=== PATIENT | female | born 1955 | race African-American/Black ===

== ENCOUNTER 2020-10-27 10:38 | Outpatient (CLI) | payer OTHER, SELFPAY ==
--- NOTE | ~2020-10-27 | MM_ITS ---
EXAMINATION: MM screening [facility] w [facility] HISTORY: Screening TECHNIQUE: Craniocaudal and mediolateral oblique 3-D tomosynthesis images were obtained and synthetic 2-D images were generated. CAD analysis was submitted and interpreted. COMPARISON: 01/31/2015 BREAST PARENCHYMAL COMPOSITION: There are scattered areas of fibroglandular density. FINDINGS: There is no evidence of suspicious mass, calcification, or architectural distortion to sugg est malignancy in either breast. There has been no suspicious interval change. IMPRESSION: 1. No mammographic evidence of malignancy. 2. Recommend routine screening mammography in one year. BI-RADS Category 1: Negative Reviewed, dictated and finalized at location A.
--- NOTE | ~2020-10-27 | DEXA_ITS ---
Bone Density Report Name: Loraine Bishop Age: 65 Sex: Female Ethnicity: White Date of : 1955 Indication: osteopenia; height loss; prior fracture; asthma or emphysema; hysterectomy; Referring Provider: IVA MILLS Study: Bone densitometry was performed. Exam Date: October 27, 2020 Accession number: [id number] Bone Density: Region BMD T-score Z-score Classification AP Spine (L1, L2, L3) 0.823 -1.8 -0.2 Osteopenia Femoral Neck (Left) 0.672 -1.6 -0.2 Osteopenia Total Hip (Left) 0.706 -1.9 -0.8 Osteopenia Total Hip Bilateral Avg 0.708 -1.9 -0.8 Osteopenia Femoral Neck (Right) 0.618 -2.1 -0.7 Osteopenia Total Hip (Right) 0.709 -1.9 -0.8 Osteopenia World Health Organization criteria for BMD impression classify patients as: Normal (T-score at or above -1.0), Osteopenia (T-score between -1.0 and -2.5), or Osteoporosis (T-score at or below -2.5). 10-year Fracture Risk(1): Major Osteoporotic Fracture 6.9% Hip Fracture 0.9% Reported Risk Factors: [place] (Black), Neck BMD=0.618, BMI=41.0, previous fracture (1) FRAX(R) Version 3.08. Fracture probability calculated for an untreated patient. Fracture probability may be lower if the patient has received treatment. Previous Exams: Region Exam Age BMD T-score BMD Change BMD Change Date g/cm2 vs Baseline vs Previous AP Spine(L1, L2, L3) 10/27/2020 65 0.823 -1.8 -0.078(-8.7%)* -0.078(-8.7%)* 01/31/2015 59 0.901 -1.1 Total Hip(Left) 10/27/2020 65 0.706 -1.9 -0.025(-3.4%) -0.025(-3.4%) 01/31/2015 59 0.731 -1.7 Total Hip(Right) 10/27/2020 65 0.709 -1.9 -0.065(-8.4%)* -0.065(-8.4%)* 01/31/2015 59 0.774 -1.4 *Denotes significance at 95% confidence level, LSC for AP Spine = 0.022 g/cm2, LSC for Total Hip = 0.027 g/cm2 Clinical Information Provided by Patient: Has had a low trauma fracture Has used the following medications: Vitamin D Has the following medical conditions: Asthma or Emphysema, Hysterectomy Patient maximum height was 68.5 Menopause Age: 52 Drinks caffeinated beverages Onset of menses at age 14 Number of children 0 Impression: The patient has low bone mass, based on the Right Femoral Neck T-score. The patient has an estimated ten-year risk of hip fracture of 0.9% and an estimated ten-year risk of major fracture of 6.9%, based on the WHO FRAX algorithm. The patient has risk factors, including: previous fracture. The BMD for the AP Spine(L1, L2, L3) decreased, changing
== END 2020-10-27 10:39 | disposition home or self-care (01) ==
LOC: ANHIMG 10:40
PROVIDERS: PCP Family Medicine; Visit Provider Obstetrics & Gynecology
DX: Z12.31 Encounter for screening mammogram for malignant neoplasm of breast (principal); Z13.820 Encounter for screening for osteoporosis; M85.88 Other specified disorders of bone density and structure, other site; M85.852 Other specified disorders of bone density and structure, left thigh; M85.851 Other specified disorders of bone density and structure, right thigh
CPT/HCPCS: 77063; 77067; 77080

== ENCOUNTER 2021-11-23 09:32 | Outpatient (CLI) | payer OTHER, SELFPAY ==
--- NOTE | ~2021-11-23 | MM_ITS ---
EXAMINATION: MM screening [facility] w [facility] HISTORY: Screening TECHNIQUE: Craniocaudal and mediolateral oblique 3-D tomosynthesis images were obtained and synthetic 2-D images were generated. CAD analysis was submitted and interpreted. COMPARISON: Comparison to multiple prior studies sequentially, with oldest reviewed study dated 10/2014. BREAST PARENCHYMAL COMPOSITION: Breast composed of scattered areas of fibroglandular density FINDINGS: There is no evidence of suspicious mass, calcification, or architectural distortion to sugg est malignancy in either breast. There has been no suspicious interval change. IMPRESSION: 1. No mammographic evidence of malignancy. 2. Recommend routine screening mammography in one year. BI-RADS Category 1: Negative Reviewed, dictated and finalized at location A.
== END 2021-11-23 09:33 | disposition home or self-care (01) ==
LOC: ANHIMG 09:35
PROVIDERS: PCP Family Medicine; Visit Provider Obstetrics & Gynecology
DX: Z12.31 Encounter for screening mammogram for malignant neoplasm of breast (principal)
CPT/HCPCS: 77063; 77067

== ENCOUNTER 2023-08-14 13:11 | Outpatient (CLI) | payer OTHER, SELFPAY ==
--- NOTE | ~2023-08-14 | MM_ITS ---
EXAMINATION: MM screening [facility] BI w t[place] HISTORY: Screening mammogram TECHNIQUE: Craniocaudal and mediolateral oblique 3-D tomosynthesis images were obtained and synthetic 2-D images were generated. CAD analysis was submitted and interpreted. COMPARISON: 11/15/2021, 10/27/2020, 01/31/2015 BREAST PARENCHYMAL COMPOSITION: There are scattered areas of fibroglandular density. FINDINGS: No suspicious mass, calcification, or architectural distortion are identified in either hollie ast to suggest malignancy. There has been no suspicious interval change. IMPRESSION: 1. No mammographic evidence of malignancy. 2. Recommend routine screening mammography in one year. BI-RADS Category 1: Negative Reviewed, dictated and finalized at location A. 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
--- NOTE | ~2023-08-14 | DEXA_ITS ---
Bone Density Report Name: BRE EPPS Age: 67 Sex: Female Ethnicity: White Date of : 1955 Indication: postmenopausal; screening for osteoporosis; height loss; asthma or emphysema; hysterectomy; Referring Provider: IVA MILLS Study: Bone densitometry was performed. Exam Date: August 14, 2023 Accession number: [id number] Bone Density: Region BMD T-score Z-score Classification AP Spine(L1, L2, L3) 0.823 -1.8 0.0 Osteopenia Femoral Neck (Left) 0.642 -1.9 -0.3 Osteopenia Total Hip (Left) 0.686 -2.1 -0.8 Osteopenia Femoral Neck (Right) 0.630 -2.0 -0.4 Osteopenia Total Hip (Right) 0.678 -2.2 -0.9 Osteopenia Total Hip Mean 0.682 -2.2 -0.9 Osteopenia World Health Organization criteria for BMD impression classify patients as: Normal (T-score at or above -1.0), Osteopenia (T-score between -1.0 and -2.5), or Osteoporosis (T-score at or below -2.5). 10-year Fracture Risk(1): Major Osteoporotic Fracture 9.3% Hip Fracture 1.3% Reported Risk Factors: [place] (), Neck BMD=0.630, BMI=40.8 (1) FRAX(R) Version 3.08. Fracture probability calculated for an untreated patient. Fracture probability may be lower if the patient has received treatment. Clinical Information Provided by Patient: Has the following medical conditions: Asthma or Emphysema, Hysterectomy Patient maximum height was 68.0 Menopause Age: 52 No regular weight bearing exercise Drinks caffeinated beverages Onset of menses at age 14 Number of children 0 Impression: The patient has low bone mass, based on the Right Total Hip T-score. The patient has an estimated ten-year risk of hip fracture of 1.3% and an estimated ten-year risk of major fracture of 9.3%, based on the WHO FRAX algorithm. Discussion: BONE DENSITY IS LOW AT ONE OR MORE SKELETAL SITES. This patient's lowest T-score is low at one or more skeletal sites. It meets the World Health Organization's (WHO) criteria for ?low bone mass? (T-score between -1.0 and -2.5). The patient's 10-year risk of fracture as calculated by FRAX is less than the threshold where pharmacological therapy is recommended by the National Osteoporosis Foundation (NOF). However, all treatment decisions require clinical judgment and consideration of individual patient factors, including patient preferences, comorbidities, previous drug use, risk factors not captured in the FRAX model (e.g., frailty, falls, vitamin D deficiency, increased bone turnover, interval significant decline in bone density) and possible under or overestimation of fracture risk by FRAX. The patient should follow a healthful lifestyle (good nutrition with adequate calcium and vitamin D, and appropriate weight-bearing exercise). Follow-Up: Consider repeating this study in 2 to 3 years to reassess this patient's s
== END 2023-08-14 13:12 | disposition home or self-care (01) ==
LOC: ANHIMG 13:14
PROVIDERS: PCP Family Medicine; Visit Provider Obstetrics & Gynecology
DX: Z12.31 Encounter for screening mammogram for malignant neoplasm of breast (principal); Z78.0 Asymptomatic menopausal state; M85.88 Other specified disorders of bone density and structure, other site; M85.852 Other specified disorders of bone density and structure, left thigh; M85.851 Other specified disorders of bone density and structure, right thigh
CPT/HCPCS: 77063; 77067; 77080

== ENCOUNTER 2024-12-15 10:06 | Outpatient (CLI) | payer OTHER, SELFPAY ==
--- NOTE | ~2024-12-15 | MM_ITS ---
EXAMINATION: MM screening haroon BI w troy HISTORY: Screening TECHNIQUE: Craniocaudal and mediolateral oblique 3-D tomosynthesis images were obtained and synthetic 2-D images were generated. CAD analysis was submitted and interpreted. COMPARISON: Comparison to multiple prior studies sequentially, with oldest reviewed study dated 10/2014. BREAST PARENCHYMAL COMPOSITION: Not dense: There are scattered areas of fibroglandular density. FINDINGS: There is no evidence of suspicious mass, calcification, or architectural distortion to sugg est malignancy in either breast. There has been no suspicious interval change. IMPRESSION: 1. No mammographic evidence of malignancy. 2. Recommend routine screening mammography in one year. BI-RADS Category 1: Negative Reviewed, dictated and finalized at location A.
--- OUTSIDE RECORDS SUMMARY | 2024-12-15 10:51 | XMS_ITS | Patient Health Record ---
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 Role Phone ALISA BENJAMIN Unavailable [phone] Liban Sheets Unavailable Unavailable Allergies Allergen (clinical drug ingredient) Drug/Non Drug Allergy documented on EMR Reaction Allergy Type Onset Date Status nebivolol Bystolic Unknown Drug Allergy 04/27/2020 active Reason For Referral No Information Medications Medication SIG (Take, Route, Frequency, Duration) Notes Start Date End Date Status Losartan Potassium 25 MG Oral Tablet losartan potassium 25 MG Ora l TabletOriginal Medicationlosartan potassium 25 MG Oral Tablet *Reorder from [employer] for eRx and Interaction Alerts* 021 2044 Active insulin degludec 100 UNT/ML Injectable Solution [Tresiba] insulin degludec 100 UNT/ML Injectable Solution [Tresiba]Original Medicationinsulin degludec 100 UNT/ML Injectable Solution [Tresiba] *Reorder from [employer] for eRx and Interaction Alerts* Active metformin hydrochloride 500 MG Oral Tablet ORAL metformin hydrochloride 500 MG Oral TabletOriginal Medicationmetformin hydrochloride 500 MG Oral Tablet *Reorder from [employer] for eRx and Interaction Alerts* Active hydroCHLOROthiazide 12.5 MG Oral Tablet ORAL hydrochlorothiazide 12.5 MG Oral TabletOriginal Medicationhydrochlorothiazide 12.5 MG Oral Tablet *Reorder from [employer] for eRx and Interaction Alerts* Active insulin aspart protamine, human 70 UNT/ML / insulin aspart, human 30 UNT/ML Injectable Suspension [NovoLog Mix] insulin aspart protamine, hu man 70 UNT/ML / insulin aspart, human 30 UNT/ML Injectable Suspension [NovoLog Mix]Original Medicationinsulin aspart protamine, human 70 UNT/ML / insulin aspart, human 30 UNT/ML Inje Active Carvedilol 12.5 MG Oral Tablet ORAL carvedilol 12.5 MG Oral TabletOriginal Medicationcarvedilol 12.5 MG Oral Tablet *Reorder from [employer] for eRx and Interaction Alerts* Active Losartan Potassium 100 MG Oral Tablet ORAL losartan potassium 100 MG Or al TabletOriginal Medicationlosartan potassium 100 MG Oral Tablet *Reorder from [employer] for eRx and Interaction Alerts* Active Plan Of Treatment No Information Insurance Providers Payer Name Payer Address Payer Phone Subscriber Number Group Number Insured Name Patient Relationship to Insured Coverage Start Date Coverage End Date [employer] PPO [address] [place], [place] [id number] BRE SMITH Self - patient is the insured
--- OUTSIDE RECORDS SUMMARY | 2024-12-15 10:51 | XMS_ITS | Data Portability ---
Author Organization [facility] [place] Boyd Address [address] [facility] [place] [address] Care Team Providers Care Hydraulics Engineer Name Role Phone LIBAN SHEETS Primary Care Provider [phone] Assessment No assessment recorded. Plan of Treatment Reminders Order Date Submit Date Provider Last Modified By Organization Details Last Modified Time Details Appointments ANY 15 2024 03:15P Sandi Sheets MD Not available Not available Not available Lab glucose, fingerst ick, blood 2024 025 In-Office Order, Internal Use Only DO Not Attach Compendium DO Not Attach Compendium, Do Not Delete/merge, [id number] 12/07/2024 17:15:11 HbA1c (hemoglo bin A1c), blood 2024 025 In-Office Order, Internal Use Only DO Not Attach Compendium DO Not Attach Compendium, Do Not Delete/merge, [id number] 12/07/2024 17:15:11 glucose, fingerst ick, blood 2024 025 In-Office Order, Internal Use Only DO Not Attach Compendium DO Not Attach Compendium, Do Not Delete/merge, [id number] 09/06/2024 17:15:51 HbA1c (hemoglo bin A1c), blood 2024 025 In-Office Order, Internal Use Only DO Not Attach Compendium DO Not Attach Compendium, Do Not Delete/merge, [id number] 09/06/2024 17:15:51 urinalys is, dipstick , reflex micro 2024 025 [facility] (Lab), [address], [place], [address], 10/25/2024 12:44:04 BMP, serum or plasma 2024 025 [facility] (Lab), [address], [place], [address], 10/25/2024 12:44:12 microalb umin/cre atinine, mass ratio, urine 2024 025 [facility] (Lab), [address], [place], [address], 10/25/2024 12:44:18 immunoel ectropho resis, serum 2024 025 [facility] (Lab), [address], [place], [address], 10/25/2024 12:44:24 ALEXX (antinuc lear antibodi es) screen, ifa, serum 2024 025 [facility] [employer], [address], [address], [place], [address], 10/25/2024 12:44:30 C3 + C4 (complem ent), serum 2024 025 [facility] [employer] [facility], [address], [address], [place], [address], 10/25/2024 12:44:36 glucose, fingerst ick, blood 2023 024 In-Office Order, Internal Use Only DO Not Attach Compendium DO Not Attach Compendium, Do Not Delete/merge, [id number] 05/09/2024 13:24:19 HbA1c (hemoglo bin A1c), blood 2023 024 In-Office Order, Internal Use Only DO Not Attach Compendium DO Not Attach Compendium, Do Not Delete/merge, [id number] 05/09/2024 13:24:19 glucose, fingerst ick, blood 2023 024 In-Office Order, Internal Use Only DO Not Attach Compendium DO Not Attach Compendium, Do Not Delete/merge, [id number] 02/09/2024 17:00:41 Referral pulmonol ogist referral 2024 025 [facility]MANINDER [facility], [address] [facility], [address], [place], [address], 12/07/2024 17:28:[address] referral 2024 025 CHOLO Ibrahim MD, [address], [address], [place], [address], 09/19/2024 09:33:26 Procedures None recorded . Surgeries None recorded . Imaging XR, chest, 2 view 2024 025 [facility] [address], [place], [address], 12/09/2024 14:52:19 XR, knee, 3 view 2023 024 [facility] (Rad), [address], [place], [address], 02/17/2024 02:18:57 XR, ankle, 3 or more view 2023 024 [facility] (Rad), [address], [place], [address], 02/17/2024 09:30:27 unlisted imaging order - xr hip lt 2-3 views w/wo pel 2023 024 [email or web address] [address], [place], [address], 03/09/2024 16:03:54 Medication Orders predniso ne 20 mg tablet [address], [address] [place] [address], [address], 12/07/2024 17:15:10 Zithroma x Z-Nilay 250 mg tablet [address], [address] [place] [address], [address], 12/07/2024 17:15:10 Symbicor t 160 mcg-4.5 mcg/actu ation HFA aerosol inhaler [address], [address] [place] [address], [address], 12/07/2024 17:15:10 ferrous sulfate 325 mg (65 mg iron) tablet 2024 025 [facility] [address], [address] [place] [address], [address], 09/06/2024 17:15:57 amlodipi ne 5 mg tablet 2024 025 [facility] [address], [address] [place] [address], [address], 08/23/2024 14:57:20 carvedil ol 6.25 mg tablet 2024 025 [facility] [address], [address] [place] [address], [address], 08/23/2024 14:59:23 Vitamin D2 1,250 mcg (50,000 unit) capsule 2023 024 [facility] [address], [address] [place] [address], [address], 05/09/2024 13:24:27 hydralaz ine 50 mg tablet 2023 025 [facility] [address], [address] [place], [address], 08/23/2024 15:05:59 ferrous sulfate 325 mg (65 mg iron) tablet 2023 024 [facility] [address], [address] [place], [address], 05/09/2024 13:24:28 atorvast atin 20 mg tablet 2023 025 [facility] [address], [address] [place], [address], 08/23/2024 14:51:26 Vitamin D2 1,250 mcg (50,000 unit) capsule 2023 024 [facility] [address], [address] [place], [address], 02/09/2024 17:00:46 Patient TargetsNo targets recorded. Patient Instructions Encounter Date Encounter Id Patient Instructions Last Modified By Organization Details Last Modified Time 02/09/2024 [id number] A healthy lifestyle: care instructions Not available 02/09/2024 17:00:38 high cholesterol : care instructions Not available 02/09/2024 17:00:38 learning about high blood pressure Not available 02/09/2024 17:00:39 05/09/2024 [id number] learning about high blood pressure Not available 05/09/2024 13:24:19 A healthy lifestyle: care instructions Not available 05/09/2024 13:24:19 anemia: care instructions Not available 05/09/2024 13:24:19 09/06/2024 [id number] A healthy lifestyle: care instructions Not available 09/06/2024 17:15:51 advance care planning: care instructions Not available 09/06/2024 17:15:51 preventing falls : care instructions Not available 09/06/2024 17:15:51 Quitting Tobacco : Care Instructions Not available 09/06/2024 17:15:51 Medicare Well[facility] Preventive Checklist Not available 09/06/2024 17:15:51 eating healthy foods: care instructions Not available 09/06/2024 17:15:51 AD8 Dementia Screening Interview Not available 09/06/2024 17:15:51 anemia: care instructions Not available 09/06/2024 17:15:51 learning about high blood pressure Not available 09/06/2024 17:15:51 12/07/2024 [id number] A healthy lifestyle: care instructions Not available 12/07/2024 17:15:10 Reason for Referral Director Script Referral for Screening for malignant neoplasm of colon Referring Physician: Liban Sheets [employer] [facility], Encounter Date: 09/06/2024 Packing Machine Inspector Referral for E xacerbation of moderate persistent asthma Referring Physician: Liban Sheets [facility], Encounter Date: 12/07/2024 Results Created Date Observation Date Name Description Value Unit Range Abnormal Flag Note LastModifiedBy Organization Detail LastModifiedTime 02/09/20 24 02/09/2024 gluco seashu rstic k, blood Blood Glucose: mg/dl 91 Not Available In-Off ice Order Internal Use Only DO Not Attach Compendium DO Not Attach Compendium, Do Not Delete/merge, [id number] 02/09/2024 16:36:26 05/09/20 24 05/09/2024 gluco fannie nathane rstic k, blood Blood Glucose: mg/dl 145 Not Available In-Off ice Order Internal Use Only DO Not Attach Compendium DO Not Attach Compendium, Do Not Delete/merge, [id number] 05/09/2024 12:46:15 05/09/20 24 05/09/2024 HbA1c (hemo globi n A1c), blood HbA1c 8.6 Not Available In-Office Order Internal Use Only DO Not Attach Compendium DO Not Attach Compendium, Do Not Delete/merge, [id number] 05/09/2024 12:46:15 09/07/19 25 09/06/2024 HbA1c (hemo globi n A1c), blood HbA1c 7.9 Not Available In-Office Order Internal Use Only DO Not Attach Compendium DO Not Attach Compendium, Do Not Delete/merge, [id number] 09/06/2024 16:18:59 09/07/1909/06/2024 gluco se, ashu ramey k, blood Blood Glucose: mg/dl 133 Not Available In-Off ice Order Internal Use Only DO Not Attach Compendium DO Not Attach Compendium, Do Not Delete/merge, [id number] 09/06/2024 16:18:58 09/24/19 25 09/23/2024 POC GLUCO SE POC glucose 50 mg/dL 70-99 low Not Available [facility] [place] ([place] [place], [address], 09/23/2024 15:11:28 09/24/19 25 09/23/2024 POC GLUCO SE POC glucose 110 mg/dL 70-99 high Not Available [facility] (Lab) [address] [facility], [place], [address], 09/23/2024 16:09:45 09/24/19 25 09/23/2024 Gluco se [Mass /volu me] in Blood by Autom ated test strip glucose [mass/volume ] in blood by automated test strip 110 mg/dL low: 70mg/d Lhigh: 99mg/d L high GLUCO SE POC 110 (H) 70 - 99 mg/dL 09/23 3:09 PM CDT [facility] Not Available Not Available 09/23/2024 16:29:20 09/24/19 25 09/23/2024 Gluco se [Mass /volu me] in Blood by Autom ated test strip interpretati on and review of laboratory results Abnorm al Not Available Not Available 16:29:20 09/24/19 25 09/23/2024 Gluco se [Mass /volu me] in Blood by Autom ated test strip glucose [mass/volume ] in blood by automated test strip 50 mg/dL low: 70mg/d Lhigh: 99mg/d L low GLUCO SE POC 50 (L) 70 - 99 mg/dL 09/23 2:10 PM CDT [facility] Not Available Not Available 09/23/2024 16:29:20 09/24/19 25 09/23/2024 Gluco se [Mass /volu me] in Blood by Autom ated test strip interpretati on and review of laboratory results Abnorm al Not Available Not Available 16:29:20 12/08/19 25 12/07/2024 HbA1c (hemo globi n A1c), blood HbA1C 7.9 % Not Available In-Office Order Internal Use Only DO Not Attach Compendium DO Not Attach Compendium, Do Not Delete/merge, [id number] 12/07/2024 16:38:18 12/08/19 25 12/07/2024 gluco se, finge rstic k, blood Blood Glucose: mg/dl 118 Not Available In-Off ice Order Internal Use Only DO Not Attach Compendium DO Not Attach Compendium, Do Not Delete/merge, [id number] 12/07/2024 16:38:17 02/17/20 24 02/16/2024 XR, knee, 3 view No observ ation record ed. [address] [place], [address], 05/09/2024 13:11:41 02/17/20 24 02/16/2024 XR, hip, unila teral , 2 or 3 view No observ ation record ed. [address] [place], [address], 05/09/2024 13:11:41 02/17/20 24 02/16/2024 XR, ankle , 3 or more view No observ ation record ed. [address] [place], [address], 05/09/2024 13:11:41 06/06/20 24 06/06/2024 US, renal No observ ation record ed. [facility] [address] [facility], [place], [address], 09/06/2024 17:04:49 09/24/19 25 xr chest Pa+la t [facility] [address] [facility] [place] [address] [facility] [address] [facility] [place] [address] Examin ation: Chest x-ray 2 view Access ion: [id number] Exam date/t daryl: 2:41 PM Reason For Exam: cough, wheezi ng, sob Compar elfego: Chest radiog raph 2018. Techni que: PA and latera l views of the chest were obtain ed. Findin gs: The cardia c silhou ette, medias tinal contou rs, and pulmon warren vessel s appear normal . The lungs are clear. No pneumo thorax . No consol idatio ns or effusi ons are seen. =====I MPRESS ION:== === No acute cardio pulmon warren findin gs. ====== ====== ====== === Ordere d By: ASHA VALLE [facility] Signed By: Alen Dennis MD on 2:59 PM Interp reted By: Alen Dennis MD, 2:58 PM [facility] [address] [facility], [place], [address], 09/26/2024 00:50:10 12/10/19 25 12/07/2024 XR, chest , 2 view No observ ation record ed. [facility]uling [address] [facility], [place], [address], 12/09/2024 22:18:50 Result Notes None recorded. Problems Name Problem SNOMED Code Status Onset Date Resolution Date Notes Provider Name and Address Organization Details Recorded Time Acute sinusitis 67491887 Active 2018 Austin Feldman PA-C Attn: Accounting, [address] [facility], [place], [address], [place] [facility] 9 19:25:26 Obese 547344394 Active 2018 Austin Feldman PA-C Attn: Accounting, [address] [facility], [place], [address], [place] [facility] 9 19:27:21 Serous otitis media 28945011 Active 2018 Austin Feldman PA-C Attn: Accounting, [address] [facility], [place], [address], [place] [facility] 9 19:44:23 Eustachian tube disorder 55278035 Active 2018 Austin Feldman PA-C Attn: Accounting, [address] [facility], [place], [address], [place] [facility] 9 19:44:45 Essential hypertension 79472687 Active 2021 Hyun Escamilla MA null, [place] [facility] 2 14:45:34 Hypertensive disorder 63490933 Active Liban Sheets MD Attn: Accounting, [address] [place], [address], [place] [facility] 6 17:17:00 Asthma 916547142 Active Jodi Oh [place] null, [place] [facility] 6 16:39:47 Diabetes mellitus 69252527 Active Liban Sheets MD Attn: Accounting, [address] [facility], [place], [address], [place] [facility] 6 17:17:00 Upper respiratory infection 39232379 Active Jodi Oh [place] null, [place] [facility] 6 16:39:47 Abnormal renal function 26480880 Active 2024 Leoncio Hernandez MD Attn: Accounting, [address] [facility], [place], [address], [place] [facility] 5 14:46:59 Retinopathy due to diabetes mellitus 0193984 Active 2024 Leoncio Hernandez MD Attn: Casey, [address] [facility], [place], [address], [place] [facility] 5 14:46:59 Conjunctivit is 7799811 Active Jodi Oh [place], [place] [facility] 6 16:39:47 Obesity 503703620 Active Jodi Oh [place], [place] [facility] 6 16:39:47 Otitis media 64015944 Active Jodi Oh [place] [facility] 6 16:39:47 Increased blood pressure 21902590 Active Jodi Oh [place] [facility] 6 16:39:47 Problem Notes None recorded. Procedures Surgical History Date Name Laterality Status Provider Name and Address Organization Details Recorded Time 0 Routine Foot Care completed Alex Negro DPM [address], [place], [address], [place] [facility] 09/08/2019 10:55:04 9 Routine Foot Care completed Alex Negro DPM [address], [place], [address], [place] [facility] 01/27/2019 16:28:37 9 Routine Foot Care completed Alex Negro DPM [address] [place], [address], [place] [facility] 10/12/2018 16:07:09 Imaging Results None recorded. Procedure Notes None recorded. Medical Equipment None Reported. Allergies Allergen ID Allergen Name Allergen Category Reaction Reaction Severity Criticality Documentation Date Start Date Code Code System Note Provider Name and Address Organization Details Recorded Time 727141 amlodipin e medicatio n edema Not available Not available 11/07/20222022 71656 RxNorm Liban Sheets MD Attn: Mat butler,[address] [facility], [place], [address], [place] [facility] 3 16:27:39 293880 Imdur medicatio n headache Not available Not available 05/09/20242023 89160 2 RxNorm Liban Sheets MD Attn: Mat butler,[address] [facility], [place], [address], [facility] 4 13:17:20 442294 nebivolol medicatio n swelling Not available [facility] 09/06/20242019 17407 RxNorm Hudson Sage MA null, [place] - [place] 5 16:34:59 549781 hydralazi ne medicatio n headache mild Not available 09/06/2024 5470 RxNorm Liban Sheets MD Attn: Mat butler,[address] [facility], [place], [address], [facility] 5 17:10:59 Medications Name Sig Start Date Stop Date Status Note LastModified by Organization Details LastModified Time cyclobenzap rine 10 mg tablet active Not Available Not Available Not Available amoxicillin 500 mg capsule 10/12 completed Not Available Not Available Not Available furosemide 40 mg tablet TAKE 1 TABLET BY MOUTH ONCE DAILY FOR 30 DAYS active Not Available Not Available No t Available carvedilol 25 mg tablet TAKE 1 TABLET BY MOUTH TWICE DAILY WITH MEALS 08/23 completed Not Available Not Available Not Available potassium chloride ER 10 mEq capsule,ext ended release Take 1 capsule every day by oral route for 90 days. 2016 active Not Available Not Available Not Avai lable clonidine HCl 0.1 mg tablet Take 1 tablet every day by oral route as directed for 1 day. 08/23 completed Not Available Not Available Not Available carvedilol 6.25 mg tablet TAKE 1 TABLET BY MOUTH TWICE DAILY active Not Available Not Available No t Available atorvastati n 20 mg tablet Take 1 tablet every day by oral route for 90 days. 08/23 completed Not Available Not Available Not Available carvedilol 12.5 mg tablet 08/23 completed Not Available Not Available Not Available triamcinolo ne acetonide 0.5 % topical cream APPLY A THIN LAYER OF CREAM TOPICALLY TO AFFECTED AREA TWICE DAILY active Not Available Not Available No t Available cetirizine 10 mg tablet Take 1 tablet every day by oral route for 90 days. 2018 active Not Available Not Available Not Avai lable atorvastati n 10 mg tablet 08/23 completed Not Available Not Available Not Available azithromyci n 250 mg tablet TAKE 2 TABLETS BY MOUTH ON DAY 1, AND THEN TAKE 1 TABLET BY MOUTH ONCE A DAY ON DAY 2 THROUGH DAY 5 active Not Available Not Available No t Available ibuprofen 800 mg tablet Take 1 tablet 3 times a day by oral route as needed for 90 days. 08/23 completed Not Available Not Available Not Available fluconazole 150 mg tablet Take 1 tablet 3 times a week by oral route for 7 days. 08/23 completed Not Available Not Available Not Available valacyclovi r 1 gram tablet 08/23 completed Not Available Not Available Not Available promethazin e 6.25 mg/5 mL oral syrup TAKE 10 ML BY MOUTH EVERY 6 HOURS NEEDED FOR NAUSEA 08/23 completed Not Available Not Available Not Available prednisone 20 mg tablet TAKE 3 TABLETS BY MOUTH ONCE DAILY FOR 3 DAYS, THEN 2 TABS DAILY X4 DAYS, THEN 1 DAILY X4 DAYS active Not Available Not Available No t Available Tylenol Arthritis Pain 650 mg tablet,exte nded release Take 1 tablet every 8 hours by oral route for 30 days. 2021 active Not Available Not Available Not Avai lable potassium chloride ER 10 mEq tablet,exte nded release Take 1 tablet every day by oral route for 90 days. 2022 active Not Available Not Available Not Avai lable metronidazo le 500 mg tablet active Not Available Not Available Not Available amlodipine 5 mg tablet Take 1 tablet every day by oral route. 2024 active Not Available Not Available Not Avai lable ciprofloxac in 500 mg tablet Take 1 tablet every 12 hours by oral route for 10 days. 10/12 completed Not Available Not Available Not Available tramadol 50 mg tablet active Not Available Not Available No t Available baclofen 20 mg tablet Take 1 tablet twice a day by oral route for 30 days. 10/12 completed Not Available Not Available Not Available losartan 100 mg-hydrochl orothiazide 25 mg tablet TAKE 1 TABLET BY MOUTH ONCE DAILY DIRECTED active Not Available Not Available No t Available isosorbide mononitrate ER 60 mg tablet,exte nded release 24 hr TAKE 1 TABLET BY MOUTH ONCE DAILY 08/23 completed Not Available Not Available Not Available amoxicillin 875 mg tablet Take 1 tablet every 12 hours by oral route for 10 days. 08/23 completed Not Available Not Available Not Available gentamicin 0.3 % eye drops INSTILL 1 DROP INTO AFFECTED EYE(S) BY OPHTHALMI C ROUTE EVERY 4 HOURS active Not Available Not Available No t Available baclofen 10 mg tablet 08/23 completed Not Available Not Available Not Available amlodipine 10 mg tablet Take 1 tablet every day by oral route for 90 days. 01/18 completed Not Available Not Available Not Available benzonatate 100 mg capsule Take 1 capsule 3 times a day by oral route for 10 days. 08/23 completed Not Available Not Available Not Available erythromyci n 5 mg/gram (0.5 %) eye ointment active Not Available Not Available Not Available ferrous sulfate 325 mg (65 mg iron) tablet Take 1 tablet every day by oral route for 90 days. 2024 active Not Available Not Available Not Avai lable glimepiride 4 mg tablet Take 1 tablet twice a day by oral route for 90 days. 2016 active Not Available Not Available Not Avai lable betamethaso ne dipropionat e 0.05 % topical cream APPLY A THIN LAYER TO THE AFFECTED AREA(S) BY TOPICAL ROUTE ONCE DAILY 2021 active Not Available Not Available Not Avai lable montelukast 10 mg tablet Take 1 tablet every day by oral route for 30 days. 2023 active Not Available Not Available Not Avai lable hydralazine 50 mg tablet Take 1 tablet twice a day by oral route as directed for 30 days. 08/23 completed Not Available Not Available Not Available hydrochloro thiazide 25 mg tablet Take 1 tablet every day by oral route for 30 days. 08/23 completed Not Available Not Available Not Available albuterol sulfate HFA 90 mcg/actuati on aerosol inhaler INHALE 2 PUFFS BY MOUTH EVERY 4 HOURS active Not Available Not Available No t Available Vitamin D2 1,250 mcg (50,000 unit) capsule Take 1 capsule every week by oral route for 90 days. 2023 active Not Available Not Available Not Avai lable Naprosyn 500 mg tablet Take 1 tablet twice a day by oral route for 30 days. 08/23 completed Not Available Not Available Not Available ondansetron 4 mg disintegrat ing tablet DISSOLVE 1 TABLET IN MOUTH EVERY 8 HOURS NEEDED active Not Available Not Available No t Available losartan 100 mg tablet Take 1 tablet every day by oral route for 30 days. 2019 active Not Available Not Available Not Avai lable fluticasone propionate 50 mcg/actuati on nasal spray,suspe nsion 2 sprays in ech nostril daily 2023 active Not Available Not Available Not Avai lable metformin ER 500 mg tablet,exte nded release 24 hr Take 3 tablets by mouth once daily 2024 active Not Available Not Available Not Avai lable clotrimazol e 1 % topical cream APPLY TO THE AFFECTED AND SURROUNDI NG AREAS OF SKIN BY TOPICAL ROUTE 2 TIMES PER DAY IN THE MORNING AND EVENING active Not Available Not Available No t Available loratadine 10 mg tablet Take 1 tablet every day by oral route as needed. 2016 active Not Available Not Available Not Avai lable amoxicillin 875 mg-potassiu m clavulanate 125 mg tablet TAKE 1 TABLET BY MOUTH TWICE DAILY FOR 10 DAYS 08/23 completed Not Available Not Available Not Available Novolog FlexPen U-100 Insulin aspart 100 unit/mL (3 mL) subcutaneou s INJECT 20 UNITS SUBCUTANE OUSLY THREE TIMES DAILY active Not Available Not Available No t Available losartan 100 mg-hydrochl orothiazide 12.5 mg tablet Take 1 tablet every day by oral route for 90 days. 08/23 completed Not Available Not Available Not Available BD Ultra-Fine Short Pen Needle 31 gauge x 5/16 active Not Available Not Available Not Available Symbicort 160 mcg-4.5 mcg/actuati on HFA aerosol inhaler Inhale 2 puffs twice a day by inhalatio n route for 30 days. 2024 active Not Available Not Available Not Avai lable Bystolic 10 mg tablet Take 1 tablet every day by oral route for 90 days. 08/23 completed Not Available Not Available Not Available Bystolic 5 mg tablet Take 1 tablet every day by oral route for 90 days. 08/23 completed Not Available Not Available Not Available OneTouch Verio test strips active Not Available Not Available Not Available OneTouch Delica Lancets 30 gauge active Not Available Not Available Not Available Invokana 300 mg tablet TAKE ONE TABLET BY MOUTH ONCE DAILY 08/23 completed Not Available Not Available Not Available Earl DaveyoStar U-300 Insulin 300 unit/mL (1.5 mL) subcutaneou s pen Inject 25 units every day by subcutane ous route at bedtime for 90 days. 2014 active Not Available Not Available Not Avai lable Tresiba FlexTouch U-100 insulin 100 unit/mL (3 mL) subcutaneou s pen INJECT 18 UNITS SUBCUTANE OUSLY ONCE DAILY active Not Available Not Available No t Available BD Perlita 2nd Gen Pen Needle 32 gauge x USE 1 TWICE DAILY DIRECTED active Not Available Not Available No t Available ID NOW COVID-19 Test Kit TEST DIRECTED TODAY active Not Available Not Available No t Available Vitals Date Recorded Body height Oxygen saturation Oxygen saturation in Arterial blood by Pulse oximetry Heart rate Respiratory rate Body temperature Body mass index (BMI) Body weight Systolic blood pressure Diastolic blood pressure Systolic blood pressure Diastolic blood pressure Provider Name and Address Organization Details Last Updated DateTime 5 170.18 cm 95 % 95 % 92 /min 18 /min 97.9 [degF] 40.2 kg/m2 859558. 52 g 181 mm[Hg] 102 mm[Hg] 174 mm[Hg] 89 mm[Hg] Jess Thomas MA [place] - [facility] 5 15:05:15 Date Recorded Body height Body mass index (BMI) Body weight Oxygen saturation Oxygen saturation in Arterial blood by Pulse oximetry Heart rate Respiratory rate Body temperature Systolic blood pressure Diastolic blood pressure Provider Name and Address Organization Details Last Updated DateTime 5 170.18 cm 40 kg/m2 106370. 15 g 99 % 99 % 92 /min 18 /min 97.2 [degF] 171 mm[Hg] 94 mm[Hg] Hudson Sage MA [place] - [facility] 5 16:34:15 Date Recorded Body height Body mass index (BMI) Body weight Oxygen saturation Oxygen saturation in Arterial blood by Pulse oximetry Heart rate Respiratory rate Body temperature Systolic blood pressure Diastolic blood pressure Provider Name and Address Organization Details Last Updated DateTime 5 170.18 cm 40 kg/m2 847785. 85 g 92 % 92 % 90 /min 18 /min 97.7 [degF] 179 mm[Hg] 102 mm[Hg] Dayanara Escamilla MA [facility] 5 16:55:43 Date Recorded Body height Body mass index (BMI) Body weight Oxygen saturation Oxygen saturation in Arterial blood by Pulse oximetry Heart rate Respiratory rate Body temperature Systolic blood pressure Diastolic blood pressure Systolic blood pressure Diastolic blood pressure Provider Name and Address Organization Details Last Updated DateTime 4 170.18 cm 39.3 kg/m2 784614. 38 g 96 % 96 % 86 /min 18 /min 98 [degF] 200 mm[Hg] 110 mm[Hg] 184 mm[Hg] 93 mm[Hg] Dayanara Escamilla MA [facility] 4 16:58:27 Date Recorded Body height Body mass index (BMI) Body weight Oxygen saturation Oxygen saturation in Arterial blood by Pulse oximetry Heart rate Respiratory rate Body temperature Systolic blood pressure Diastolic blood pressure Provider Name and Address Organization Details Last Updated DateTime 4 170.18 cm 40.2 kg/m2 980600. 75 g 99 % 99 % 94 /min 18 /min 98.2 [degF] 145 mm[Hg] 116 mm[Hg] Dayanara Escamilla MA [facility] 4 12:43:07 Social History Question Answer Notes LastModified by Organizat ion Details LastModified Time Tobacco Smoking Status Never Smoker Liban Sheets MD Attn: [place], [address], [facility] 08/29/2014 19:44:16 Are You Blind Or Do You Have Difficulty Seeing? No Information n ot available 01/24/2022 What Is Your Level Of Caffeine Consumption? Occasional Information not available 11/16/2014 In The 14 Days Before Symptom Onset, Have You Had Close Contact With A Laboratory-confirm ed COVID-19 While That Case Was Ill? Yes Information n ot available 11/28/2020 In The 14 Days Before Symptom Onset, Have You Had Close Contact With A Person Who Is Under Investigation For COVID-19 While That Person Was Ill? Yes Information not available 11/28/2020 Have You Been To An Area Known To Be High Risk For COVID-19? No Information not available 11/28/2020 Are You Deaf Or Do You Have Serious Difficulty Hearing? No Information not available 01/24/2022 What Type Of Diet Are You Following? REGULAR Information n ot available 11/16/2014 Marital Status Single Informatio n not available 11/16/2014 What Was The Date Of Your Most Recent Tobacco Screening? 09/06/2024 [email or web address] Information not available 09/06/2024 How Many Children Do You Have? 0 Information not available 11/28/2020 What Is Your Relationship Status? Single Information not available 11/28/2020 Do You Use Your Seat Belt Or Car Seat Routinely? Yes Information not available 11/28/2020 Do You Have Smoke And Carbon Monoxide Detectors In Your Home? Yes Information not available 11/28/2020 Are You Passively Exposed To Smoke? No Information no t available 11/28/2020 How Much Tobacco Do You Smoke? No [email or web address] Information not available 02/27/2015 General Stress Level Medium Information not available 11/16/2014 Sex: Female Functional Status Question Answer Note LastModified by Organizat ion Details LastModified Time Do you use any illicit or recreational drugs? No Denies Information not available 11/28/2020 What is your level of alcohol consumption? Occasional Denies Information not available 11/28/2020 Are you currently employed? Yes Information not available 11/28/2020 Are you able to care for yourself? 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 Occasional Information not available 11/16/2014 Mental Status None recorded. Family History Nothing Reported. Medical History Condition Response Coronary Artery Disease N Other N Atrial Fibrillation N High Blood Pressure Y Depression N COPD N Blood Clots N Anxiety Disorder N Muscle, Joint, or Bone Problems N Acid Reflux (GERD) N Cancer N Stroke N High Cholesterol N Liver Disease N Headaches N Kidney or Bladder Problems N Thyroid Problems N GI Problems N Skin Problems N Anemia N Heart Attack (MT) N Diabetes Y Seizures/Epilepsy N Asthma N Allergies N Hepatitis N Heart Failure N Osteoporosis N Gynecological HistoryNo gynecological history recorded. Obstetrics History GPAL:G 0 P 0 0 0 0 Immunizations Vaccine Type Date Status Note Provider Nam e and Address Organization Details Recorded Time COVID-19 vaccine, vector-nr, rS-Ad26, PF, 0.5 mL 11/03/2020 completed Not Available [facility] 5 15:34:19 COVID-19 vaccine, vector-nr, rS-Ad26, PF, 0.5 mL 05/22/2021 completed Not Available [facility] 5 15:34:19 Influenza, split virus, quadrivalent, PF 04/25/2022 completed Hyun Escam[place], [place] [facility] 04/25/2022 16:00:00 COVID-19, mRNA, LNP-S, PF, 100 mcg/0.5mL dose or 50 mcg/0.25mL dose 04/25/2022 completed Jodi Oh [place] null, [place] - [facility] 04/25/2022 15:55:48 Past Encounters Encounter ID Performer Location Encounter Start Date Encounter Closed Date Diagnosis/Indication Diagnosis SNOMED-CT Code Diagnosis ICD10 Code Diagnosis Note [id number] Liban Sheets MD [address] [address] 08/29/2014 18:16:56 08/30/2014 17:19:14 Upper respiratory infection 18868898 x-ray and antibiotic s and follow up... states sx of pneumonia in the past [id number] Baldev Scott MD [address] [address] 10/04/2014 17:18:13 10/06/2014 13:50:15 Conjunctivitis 9278838 Hypertensive disorder 31569815 [id number] Liban Sheets MD [address] [address] 11/16/2014 16:21:09 11/27/2014 18:33:55 Diabetes mellitus 86679153 meds need adjusting. .. add tradjenta and follow up Hypertensive disorder 41075637 meds and follow up [id number] Liban Sheets MD [place] [address] 3 02/15/2015 16:18:43 02/16/2015 09:04:18 Diabetes mellitus 65433904 meds need adjusting. .. add tradjenta and follow up..... Hypertensive disorder 03591343 meds and follow up [id number] Liban Sheets MD [place] [address] 3 02/27/2015 17:38:30 02/28/2015 09:04:20 Diabetes mellitus 15024724 meds need adjusting. .. add tradjenta and follow up.....cur rently on 10 units... 250s today.. Hypertensive disorder 55208910 meds and follow up Obesity 273102698 does n ot diet.... advise diet and exercise.. . [id number] Liban Sheets MD [place] [address] 3 04/06/2015 16:46:18 04/17/2015 10:34:08 Diabetes mellitus 07598258 E11.9 metformin and amaryl only.... stopped tradjenta and cant tolerate toujeo... Januvia caused itching... diet and exercise.. . Hypertensive disorder 38 538604 I10 meds and follow up Obesity 523039322 E66.9 does not diet.... advise diet and exercise.. . [id number] Liban Sheets MD [place] [address] 3 06/06/2015 16:27:53 06/20/2015 16:40:42 Diabetes mellitus 57080624 E11.9 metformin and amaryl only.... stopped tradjenta and cant tolerate toujeo... Januvia caused itching... diet and exercise.. . Hypertensive disorder 38 813692 I10 hold meds and follow up... no meds in 1 month.... check as out-patien t.... Asthma 970464840 J45.90 9 meds and follow up... Obesity 245282649 E66.9 does not diet.... advise diet and exercise.. .224.. [id number] Liban Sheets MD [place] [address] 3 09/05/2015 15:47:48 09/29/2015 11:35:29 Diabetes mellitus 98418912 E11.9 metformin and amaryl only.... stopped tradjenta and cant tolerate toujeo... Januvia caused itching... diet and exercise.. .Invokana1 00mg a day and follow up... Hypertensive disorder 38 300486 I10 hold meds and follow up... no meds in 1 month.... check as out-patien t.... Otitis media 25811553 H6 6.90 meds and follow up...otc treatment only per patient request... [id number] Liban Sheets MD [place] [address] 3 11/06/2015 16:15:16 11/09/2015 03:48:15 Diabetes mellitus 81697077 E11.9 metformin and amaryl only.... stopped tradjenta and cant tolerate toujeo... Januvia caused itching... diet and exercise.. .Invokana 100mg a day and follow up... Increased blood pressure 68288774 R03.0 check and follow up in 2 months... reduce caffeine.. . [id number] Liban Sheets MD [place] [address] 3 01/07/2016 16:24:20 01/11/2016 03:48:13 Diabetes mellitus 62332964 E11.9 metformin and amaryl only.... stopped tradjenta and cant tolerate toujeo... Januvia caused itching... diet and exercise.. .Invokana 100mg a day and follow up... Hypertensive disorder 38 935970 I10 hold meds and follow up... no meds in 1 month.... check as out-patien t.... Obesity 050831637 E66.9 does not diet.... advise diet and exercise.. .224.. [id number] Liban Sheets MD [place] [address] 3 03/11/2016 16:25:53 03/18/2016 13:59:54 Diabetes mellitus 62157228 E11.9 metformin and amaryl only.... stopped tradjenta and cant tolerate toujeo... Januvia caused itching... diet and exercise.. .Invokana 100mg a day and follow up... Hypertensive disorder 38 035846 I10 hold meds and follow up... no meds in 1 month.... check as out-patien t.... [id number] Liban Sheets MD [place] [address] 3 07/03/2016 16:26:24 07/15/2016 08:33:22 Diabetes mellitus 98472011 E11.9 metformin and amaryl only.... stopped tradjenta and cant tolerate toujeo... Januvia caused itching... diet and exercise.. .Invokana 100mg a day and follow up... Hypertensive disorder 38 028252 I10 meds and follow up Obesity 923567917 E66.9 does not diet.... advise diet and exercise.. .210... [id number] Liban Sheets MD [place] [address] 3 10/01/2016 16:15:03 10/08/2016 10:41:11 Diabetes mellitus 53489009 E11.9 metformin and amaryl ... sample Invokana 100mg til see endo in ... Hypertensive disorder 38 001528 I10 meds and follow up... added HCTZ and potassium. .. Obesity 117770647 E66.9 does not diet.... advise diet and exercise.. .210... [id number] [place] [address] 10/10/2016 17:46:40 10/16/2016 13:38:40 Tinea corporis 17858741 B35.4 [id number] Liban Sheets MD [place] [address] 3 12/31/2016 16:41:31 01/06/2017 08:44:11 Diabetes mellitus 71857957 E11.9 seeing endocrinol ogy... follow up... Hypertensive disorder 38 384856 I10 meds and follow up... added HCTZ and potassium. .. Obesity 672060123 E66.9 does not diet.... advise diet and exercise.. .207... [id number] Liban Sheets MD [address] [address] 03/03/2017 16:28:33 03/03/2017 17:57:46 Diabetes mellitus 25978142 E11.9 seeing endocrinol ogy... follow up... Hypertensive disorder 38 145430 I10 meds and follow up... added HCTZ and potassium. .. amlodipine in 2 months... Obesity 896598975 E66.9 does not diet.... advise diet and exercise.. .233... Pain of ri ght hip joint 1171847794 97926 M25.551 x-rays of hip... Acute dermatitis 4074195 6 L30.9 meds and follow up.. [id number] Liban Sheets MD [place] [address] 3 06/03/2017 14:00:44 06/04/2017 10:30:34 Hypertensive disorder 96443102 I10 meds and follow up... added HCTZ and potassium. .. restart amlodipine and see me in 2 months... Diabetes mellitus 695026 09 E11.9 meds need adjusting. .. add tresiba and follow up.....c.. 120 today.. Sciatica 47524288 M54.31 meds and formal PT... note pain may affect BP... 04-07-2017 ... [id number] Liban Sheets MD [place] [address] 09/03/2017 16:08:06 09/04/2017 08:48:06 Diabetes mellitus 00477394 E11.9 meds need adjusting. .. add tresiba and follow up.....c.. 120 today.. Hypertensive disorder 38 035287 I10 meds and follow up... added HCTZ and potassium. .. restart amlodipine and see me in 2 months... Abdominal pain 00456038 R10.[address]... trace blood in urine... [id number] Liban Sheets MD [address] [address] 09/08/2017 18:14:13 09/10/2017 11:17:34 Pain of right hip joint 2596415379 31981 M25.551 x-rays of hip... home PT... if not affective, formal PT... Urinary tr act infectious disease 09176877 N39.0 U/A positive for blood only... Essential hypertension 40564390 I10 meds and follow up... [id number] Liban Sheets MD [address] [address] 01/26/2018 16:16:02 01/28/2018 08:44:54 Pain of right hip joint 8753420823 11159 M25.551 x-rays of hip... home PT... if not affective, formal PT... Essential hypertension 30198755 I10 meds and follow up... Diabetes mellitus 338016 09 E11.9 meds need adjusting. .. add tresiba and follow up..... Januvia wasnt tolerated. .. add SSI... if under 70, see me.. [id number] Liban Sheets MD [address] [address] 06/09/2018 16:43:26 06/10/2018 08:25:40 Diabetes mellitus 04306472 E11.9 meds need adjusting. .. add tresiba and follow up..... Januvia wasnt tolerated. .. add SSI... if under 70, see me... compliance an issues... missed endocrinol ogy appt last summer... will reschedule ... Pain of ri ght hip joint 9002549422 44077 M25.551 x-rays of hip... home PT... if not affective, formal PT... Essential hypertension 01300023 I10 meds and follow up... Edema of l ower extremity 691592766 R60.0 feet only... SUDARSHAN hose [id number] Liban Sheets MD [address] [address] 09/14/2018 10:03:32 09/15/2018 16:40:14 Diabetes mellitus 13577299 E11.9 meds need adjusting. .. add tresiba and follow up..... Januvia wasnt tolerated. .. add SSI... if under 70, see me... compliance an issues... missed endocrinol ogy appt last summer... will reschedule ... [id number] Liban Sheets MD [address] [address] 09/15/2018 16:08:49 09/15/2018 16:57:04 Diabetes mellitus 77973220 E11.9 meds need adjusting. .. add tresiba and follow up..... Januvia wasnt tolerated. .. add SSI... if under 70, see me... compliance an issues... did not want endocrinol ogy ... will follow... Pain of ri ght hip joint 7747532675 28220 M25.551 x-rays of hip 04-07-2017 was negative.. . home PT... if not affective, formal PT... Essential hypertension 97829425 I10 meds and follow up... Edema of l ower extremity 147550503 R60.0 feet only... SUDARSHAN hose Upper resp iratory infection 22856023 J06.9 x-ray and antibiotic s and follow up... states sx of pneumonia in the past [id number] Alex Tom [facility] [address] [place] [address] 10/12/2018 14:33:37 10/14/2018 15:15:29 Diabetes mellitus 75734723 E11.69 Foot callus 321355268 L8 4 Onychomycosis 651955096 B35.1 [id number] Liban Sheets MD [address] [address] 12/07/2018 18:06:31 12/08/2018 13:41:30 Diabetes mellitus 54776737 E11.9 meds need adjusting. .. add tresiba and follow up..... Januvia wasnt tolerated. .. add SSI... if under 70, see me... compliance an issues... did not want endocrinol ogy ... will follow... Pain of ri ght hip joint 1163744226 89206 M25.551 x-rays of hip 04-07-2017 was negative.. . home PT... if not affective, formal PT... Essential hypertension 88270195 I10 meds and follow up... Edema of l ower extremity 754878815 R60.0 feet only... SUDARSHAN hose Upper resp iratory infection 73865201 J06.9 x-ray and antibiotic s and follow up... states sx of pneumonia in the past... may have strep throat.. [id number] Liban Sheets MD [address] [address] 12/23/2018 18:24:14 12/24/2018 08:35:31 Acute sinusitis 99676367 J01.90 Diabetes mellitus 559350 09 E11.9 Obese 719232252 E66.9 Serous otitis media 8032 7007 H65.93 Eustachian tube disorder 87606891 H69.93 [id number] Alex Tom [facility] [address] [address] 01/27/2019 15:52:13 02/07/2019 13:22:45 Diabetes mellitus 66901327 E11.69 Foot callus 210975937 L8 4 Onychomycosis 766531411 B35.1 [id number] Liban Sheets MD [address] [address] 02/15/2019 15:59:49 02/16/2019 08:59:39 Diabetes mellitus 23579018 E11.9 meds need adjusting. .. add tresiba and follow up..... Januvia wasnt tolerated. .. add SSI... if under 70, see me... compliance an issues... did not want endocrinol ogy ... will follow... Pain of ri ght hip joint 9169014923 75697 M25.551 x-rays of hip 04-07-2017 was negative.. . home PT... if not affective, formal PT... Essential hypertension 93899385 I10 meds and follow up... Edema of l ower extremity 855019256 R60.0 feet only... SUDARSHAN hose Obesity 158903462 E66.9 261, now 809 [id number] Liban Sheets MD [address] [address] 05/18/2019 16:27:16 05/20/2019 15:39:18 Diabetes mellitus 19260831 E11.9 meds need adjusting. .. add tresiba and follow up..... Januvia wasnt tolerated. .. add SSI... if under 70, see me.. Edema of l ower extremity 308097366 R60.0 refer... SUDARSHAN hose... liver and kidneys not too abnormal except for reduced GFR... to ER with CP/concern s... [id number] Liban Sheets MD [address] [address] 07/05/2019 16:02:10 07/06/2019 09:28:20 Diabetes mellitus 44801227 E11.9 meds need adjusting. .. add tresiba and follow up..... Januvia wasnt tolerated. .. add SSI... if under 70, see me.. Pain of ri ght hip joint 7432059586 67401 M25.551 x-rays of hip 04-07-2017 was negative.. . home PT... if not affective, formal PT... Essential hypertension 04762229 I10 meds and follow up... Edema of l ower extremity 628817914 R60.0 feet only... SUDARSHAN hose and Bystolic stopped... edema reduced per patient.. Obesity 053636160 E66.9 268 to 257 after fluid loss... Anemia 428366339 D64.9 vitamin and follow up... [id number] Alex Tom [facility] [address] [place] [address] 09/08/2019 10:25:58 09/12/2019 10:26:09 Diabetes mellitus 01415087 E11.69 Foot callus 626539919 L8 4 Onychomycosis 572553011 B35.1 [id number] Liban Sheets MD [address] [address] 09/20/2019 11:01:01 09/21/2019 12:35:25 Diabetes mellitus 32042444 E11.9 meds need adjusting. .. add tresiba and follow up..... Januvia wasnt tolerated. .. add SSI... if under 70, see me.. Pain of ri ght hip joint 6579906248 52445 M25.551 x-rays of hip 04-07-2017 was negative.. . home PT... if not affective, formal PT... Essential hypertension 28197954 I10 meds and follow up... carvedilol 6.25 mg BID per cardiology Edema of l ower extremity 401524034 R60.0 feet only... SUDARSHAN hose and Bystolic stopped... edema reduced per patient.. Obesity 321876125 E66.9 268 to 257 after fluid loss... Anemia 391982559 D64.9 vitamin and follow up... Acute dermatitis 5777083 6 L30.9 meds and follow up.. [id number] Liban Sheets MD [address] [address] 12/21/2019 12:08:59 12/22/2019 07:20:56 Diabetes mellitus 32353537 E11.9 meds need adjusting. .. add tresiba and follow up..... Januvia wasnt tolerated. .. add SSI... if under 70, see me.. Pain of ri ght hip joint 3313521472 78343 M25.551 x-rays of hip 04-07-2017 was negative.. . home PT... if not affective, formal PT... Essential hypertension 58294332 I10 meds and follow up... carvedilol 6.25 mg BID per cardiology Edema of l ower extremity 464002509 R60.0 feet only... SUDARSHAN hose and Bystolic stopped... edema reduced per patient.. Obesity 103715311 E66.9 268 to 257 after fluid loss... Anemia 588592138 D64.9 vitamin and follow up... Acute dermatitis 7442560 6 L30.9 meds and follow up.. [id number] Liban Sheets MD [address] [address] 01/12/2020 12:05:36 01/13/2020 07:29:04 Diabetes mellitus 45689480 E11.9 meds need adjusting. .. add tresiba and follow up..... Januvia wasnt tolerated. .. add SSI... if under 70, see me.. Pain of ri ght hip joint 5095137775 23044 M25.551 x-rays of hip 04-07-2017 was negative.. . home PT... if not affective, formal PT... Essential hypertension 89445672 I10 meds and follow up... carvedilol 25 mg BID per cardiology Edema of l ower extremity 537081119 R60.0 feet only... SUDARSHAN hose and Bystolic stopped... edema reduced per patient.. Obesity 677821236 E66.9 268 to 257 after fluid loss... Anemia 049217500 D64.9 vitamin and follow up... Acute dermatitis 6658672 6 L30.9 meds and follow up.. [id number] Baldev Scott MD [address] [address] 02/15/2020 18:03:15 02/16/2020 07:15:46 Viral syndrome 261124765 B34.9 I still suspect covid. Sinusitis 22332468 J32.9 [id number] Liban Sheets MD [address] [address] 03/14/2020 11:54:12 03/15/2020 07:07:18 Essential hypertension 65883919 I10 meds and follow up... having meds adjusted by cardiology ... Diabetes mellitus 046260 09 E11.9 seeing specialist Pain of ri ght hip joint 7497041191 81693 M25.551 x-rays of hip 04-07-2017 was negative.. . home PT... if not affective, formal PT... Edema of l ower extremity 493972015 R60.0 feet only... SUDARSHAN hose and Bystolic stopped... edema reduced per patient.. Obesity 811547800 E66.9 268 to 257 after fluid loss... Anemia 987865712 D64.9 vitamin and follow up... Acute dermatitis 8482496 6 L30.9 meds and follow up.. [id number] Liban Sheets MD [address] [address] 04/18/2020 11:53:14 04/23/2020 06:28:47 Essential hypertension 98733505 I10 meds and follow up... having meds adjusted by cardiology ,carvedilo l 25 mg BID... stressed compliance with BID dosing... Diabetes mellitus 871849 09 E11.9 seeing specialist Pain of ri ght hip joint 7838989120 82652 M25.551 x-rays of hip 04-07-2017 was negative.. . home PT... if not affective, formal PT... Edema of l ower extremity 712737388 R60.0 feet only... SUDARSHAN hose and Bystolic stopped... edema reduced per patient.. Obesity 628118943 E66.9 268 to 257 after fluid loss... Anemia 026832754 D64.9 vitamin and follow up... Acute dermatitis 3954649 6 L30.9 meds and follow up.. [id number] Liban Sheets MD [address] [address] 04/24/2020 15:23:04 04/25/2020 06:20:12 Pain in right foot 1053192793 53432 M79.671 refer for possible foot fracture Essential hypertension 07673251 I10 meds and follow up... having meds adjusted by cardiology ,carvedilo l 25 mg BID... stressed compliance with BID dosing... Diabetes mellitus 143855 09 E11.9 seeing specialist Pain of ri ght hip joint 6991918324 65784 M25.551 x-rays of hip 04-07-2017 was negative.. . home PT... if not affective, formal PT... Edema of l ower extremity 259711342 R60.0 feet only... SUDARSHAN hose and Bystolic stopped... edema reduced per patient.. Obesity 565549637 E66.9 268 to 257 after fluid loss... Anemia 191895452 D64.9 vitamin and follow up... Acute dermatitis 5346926 6 L30.9 meds and follow up.. [id number] Liban Sheets MD [address] [address] 07/27/2020 11:13:57 07/30/2020 06:21:56 Pain in right foot 1536346453 15526 M79.671 refer for possible foot fracture Essential hypertension 46012536 I10 meds and follow up... having meds adjusted by cardiology ,carvedilo l 25 mg BID... Diabetes mellitus 645315 09 E11.9 seeing specialist Pain of ri ght hip joint 2534536117 83268 M25.551 x-rays of hip 04-07-2017 was negative.. . home PT... if not affective, formal PT... Edema of l ower extremity 106166889 R60.0 feet only... SUDARSHAN hose and Bystolic stopped... edema reduced per patient.. Obesity 285555583 E66.9 268 to 257 after fluid loss... Anemia 515698882 D64.9 vitamin and follow up... taking OTC... Acute dermatitis 1037256 6 L30.9 meds and follow up.. Adult heal th examination 381761896 Z00.00 mammogram to be ordered by [facility]... [id number] Liban Sheets MD [address] [address] 11/13/2020 13:27:43 11/14/2020 06:08:09 Diabetes mellitus 94022226 E11.9 seeing specialist ... discussed improving diet... Pain in right foot 18738 10333 59115 M79.671 seeing senior training specialist and pain resolved after wearing boot x 1 month... Essential hypertension 11311802 I10 meds and follow up... having meds adjusted by cardiology ,carvedilo l 25 mg BID... stressed compliance with BID dosing... Pain of ri ght hip joint 7169235690 92251 M25.551 x-rays of hip 04-07-2017 was negative.. . home PT... if not affective, formal PT... Edema of l ower extremity 067064516 R60.0 feet only... SUDARSHAN hose and Bystolic stopped... edema reduced per patient.. Obesity 653196036 E66.9 268 to 257 after fluid loss... Anemia 585452793 D64.9 vitamin and follow up... Acute dermatitis 0201169 6 L30.9 meds and follow up.. Kidney disease 72787108 N08 seeing specialist ... [id number] Baldev Scott MD [place] [address] 3 11/28/2020 17:27:19 11/29/2020 13:44:21 Coronavirus infection 666160519 B34.2 [id number] Liban Sheets MD [place] [address] 3 12/04/2020 17:12:25 12/05/2020 06:44:48 Suspected COVID-19 227624360 Z03.89 return to work... [id number] Liban Sheets MD [place] [address] 3 12/11/2020 17:11:58 12/12/2020 07:02:14 Suspected COVID-19 759687898 Z03.89 return to work note done [id number] Liban Sheets MD [place] [address] 3 01/01/2021 18:32:46 01/02/2021 08:14:40 Suspected COVID-19 699239199 Z03.89 return to work note done... FMLA paperwork done... [id number] Liban Sheets MD [place] [address] 3 02/13/2021 14:00:28 02/14/2021 07:46:35 Diabetes mellitus 46564554 E11.9 seeing specialist ... discussed improving diet... Reactive a irway disease 5003359671 06 J45.909 s/p Covid Pain in right foot 92505 02631 10883 M79.671 seeing senior training specialist and pain resolved after wearing boot x 1 month... Essential hypertension 87491209 I10 meds and follow up... having meds adjusted by cardiology ,carvedilo l 25 mg BID... stressed compliance ...also advised to take meds per cardio Pain of ri ght hip joint 2967883098 03288 M25.551 x-rays of hip 04-07-2017 was negative.. . home PT... if not affective, formal PT... Edema of l ower extremity 857281845 R60.0 feet only... SUDARSHAN hose and Bystolic stopped... edema reduced per patient.. Obesity 205625469 E66.9 268 to 257 after fluid loss... Anemia 243124938 D64.9 vitamin and follow up... Acute dermatitis 8468637 6 L30.9 meds and follow up.. Kidney disease 43960908 N08 seeing specialist ... Pain of ri ght shoulder joint 0111054346 4503749 M25.511 PT and follow up... [id number] Liban Sheets MD [address] [address] 03/21/2021 13:19:12 03/22/2021 11:32:43 Diabetes mellitus 56599980 E11.9 seeing specialist ... discussed improving diet... Reactive a irway disease 3990021568 06 J45.909 s/p Covid Pain in right foot 32949 36563 46883 M79.671 seeing senior training specialist and pain resolved after wearing boot x 1 month... Essential hypertension 32103825 I10 meds and follow up... having meds adjusted by cardiology , carvedilol 25 mg BID... ...appt in .. Pain of ri ght hip joint 2642302976 67550 M25.551 x-rays of hip 04-07-2017 was negative.. . home PT... if not affective, formal PT... Edema of l ower extremity 488512503 R60.0 feet only... SUDARSHAN hose and Bystolic stopped... edema reduced per patient.. Obesity 321537540 E66.9 268 to 257 after fluid loss... Anemia 164583567 D64.9 vitamin and follow up... Acute dermatitis 0415517 6 L30.9 meds and follow up.. Kidney disease 98924454 N08 seeing specialist ... Pain of ri ght shoulder joint 3680036575 2080498 M25.511 PT and follow up... improving. .. [id number] Liban Sheets MD [address] [address] 04/19/2021 11:22:34 04/22/2021 13:06:31 Diabetes mellitus 90074167 E11.9 seeing specialist ... discussed improving diet... Reactive a irway disease 6285603530 06 J45.909 s/p Covid Pain in right foot 87242 76856 69085 M79.671 seeing senior training specialist and pain resolved after wearing boot x 1 month... Essential hypertension 87057565 I10 meds and follow up... having meds adjusted by cardiology , carvedilol 25 mg BID... ..stop clonidine and start hydralazin e 50 BID... Pain of ri ght hip joint 2807031034 43289 M25.551 x-rays of hip 04-07-2017 was negative.. . home PT... if not affective, formal PT... Edema of l ower extremity 079250173 R60.0 feet only... SUDARSHAN hose and Bystolic stopped... edema reduced per patient.. Obesity 246007100 E66.9 268 to 257 after fluid loss... Anemia 678363297 D64.9 vitamin and follow up... Acute dermatitis 6257242 6 L30.9 meds and follow up.. Kidney disease 63190306 N08 seeing specialist ... Pain of ri ght shoulder joint 0622306896 5862055 M25.511 PT and follow up... improving. .. Allergic rhinitis 261549 04 J30.9 [id number] Liban Sheets MD [address] [address] 08/15/2021 10:52:44 08/16/2021 06:53:35 Diabetes mellitus 28151872 E11.9 seeing specialist ... discussed improving diet... Adult heal th examination 257871383 Z00.00 mammogram to be ordered by [facility]... Reactive a irway disease 9521827588 06 J45.909 s/p Covid Pain in right foot 66385 82908 52209 M79.671 seeing senior training specialist and pain resolved after wearing boot x 1 month... Essential hypertension 79246080 I10 meds and follow up... having meds adjusted by cardiology , carvedilol 25 mg BID... ..stop clonidine and start hydralazin e 50 BID... Pain of ri ght hip joint 7846874521 88294 M25.551 x-rays of hip 04-07-2017 was negative.. . home PT... if not affective, formal PT... Edema of l ower extremity 833942186 R60.0 feet only... SUDARSHAN hose and Bystolic stopped... edema reduced per patient.. Obesity 809447703 E66.9 268 to 257 after fluid loss... Anemia 459798537 D64.9 vitamin and follow up... Acute dermatitis 3246834 6 L30.9 meds and follow up.. Kidney disease 09014771 N08 seeing specialist ... Pain of ri ght shoulder joint 6787986869 6010716 M25.511 PT and follow up... improving. .. Allergic rhinitis 132482 04 J30.9 [id number] Liban Sheets MD [address] [address] 01/24/2022 12:01:14 01/27/2022 19:28:16 Diabetes mellitus 76228242 E11.9 seeing specialist ... discussed improving diet... restart full dose of metformin. .. History of SARS-CoV-2 29 72652752 41829427 Z86.16 refer to pulm... Covid ... still SOB Pain of left eye 1324011 001 82289 H57.12 opth appt 01-30-2022 ... Allergic rhinitis 555527 04 J30.9 start nose spray... Adult heal th examination 299955331 Z00.00 mammogram to be ordered by [facility]... Reactive a irway disease 2269217782 06 J45.909 s/p Covid Pain in right foot 04512 97608 84525 M79.671 seeing senior training specialist and pain resolved after wearing boot x 1 month... Essential hypertension 55881680 I10 meds and follow up... having meds adjusted by cardiology , carvedilol 25 mg BID... ..start hydralazin e 50 BID... Pain of ri ght hip joint 4795117927 81180 M25.551 x-rays of hip 04-07-2017 was negative.. . home PT... sees chiro/mass age Obesity 254662158 E66.9 268 to 257 after fluid loss... Anemia 794897086 D64.9 vitamin and follow up... Acute dermatitis 4747382 6 L30.9 meds and follow up.. Kidney disease 89075091 N08 seeing specialist ... [id number] Liban Sheets MD [address] [address] 04/25/2022 14:33:35 04/28/2022 08:10:10 Diabetes mellitus 08902373 E11.9 seeing specialist ... discussed improving diet... restart full dose of metformin. .. History of SARS-CoV-2 29 41523221 61032752 Z86.16 refer to pulm... Covid ... still SOB... use Breztri for 2 weeks.. Pain of left eye 1912796 001 76179 H57.12 saw opth Allergic rhinitis 536594 04 J30.9 start nose spray... Adult [facility] th examination 425119965 Z00.00 mammogram to be ordered by [facility]... Reactive a irway disease 3975790744 06 J45.909 s/p Covid, but appt with pulm... Pain in right foot 83940 95123 94344 M79.671 seeing senior training specialist and pain resolved after wearing boot x 1 month... Essential hypertension 39134765 I10 meds and follow up... having meds adjusted by cardiology , carvedilol 25 mg BID... ..start hydralazin e 50 BID... Pain of ri ght hip joint 1852767300 44935 M25.551 x-rays of hip 04-07-2017 was negative.. . home PT... sees chiro/mass age Obesity 643466167 E66.9 268 to 257 after fluid loss... Anemia 175286159 D64.9 vitamin and follow up... Acute dermatitis 7053473 6 L30.9 meds and follow up.. Kidney disease 26666580 N08 seeing specialist ... [id number] Liban Sheets MD [address] [address] 04/25/2022 15:42:50 04/28/2022 08:13:22 Administration of SARS-CoV-2 mRNA vaccine 3492544858 Z23 [id number] Liban Sheets MD [address] [address] 07/25/2022 15:01:02 07/28/2022 16:10:30 Essential hypertension 48926833 I10 meds and follow up... having meds adjusted by cardiology , carvedilol 25 mg BID... ..start hydralazin e 50 BID... Morbid obesity 978781970 E66.01 Diabetes mellitus 618539 09 E11.9 seeing specialist ... discussed improving diet... restart full dose of metformin. .. Anemia 925107436 D64.9 vitamin and follow up... Reactive a irway disease 9825543624 06 J45.909 s/p Covid, but appt with pulm... Upper resp iratory infection 10366265 J06.9 x-ray and antibiotic s and follow up... states sx of pneumonia in the past... stop OTC cough meds Kidney disease 38111592 N08 seeing specialist ... Pain of ri ght hip joint 7994401900 99358 M25.551 x-rays of hip 04-07-2017 was negative.. . sx improved after chiropract or... [id number] Liban Sheets MD [address] [address] 07/29/2022 12:57:56 07/29/2022 13:42:42 Essential hypertension 88885553 I10 meds and follow up... having meds adjusted by cardiology , carvedilol 25 mg BID... ..start hydralazin e 50 BID...-mehrdad cerrato was successful ly enrolled in the HTN program.-P CP was sent a patient case notifying of enrollment . [id number] Liban Sheets MD [place] [address] 11/07/2022 16:12:24 11/10/2022 10:26:28 Essential hypertension 46642571 I10 meds and follow up.. add nitrate... Diabetes mellitus 894964 09 E11.9 seeing specialist ... Morbid obesity 416211815 E66.01 bmi=39.8 Allergic rhinitis 151325 04 J30.9 start nose spray... Reactive a irway disease 0901766308 06 J45.909 s/p Covid, but appt with pulm... [id number] Liban Sheets MD [place] [address] 3 03/12/2023 16:11:41 03/18/2023 13:54:53 Diabetes mellitus 73436296 E11.9 seeing specialist ... Morbid obesity 281967183 E66.01 bmi=40.7 Essential hypertension 78569755 I10 meds and follow up.. add nitrate... check out-pt and follow up.... Allergic rhinitis 558219 04 J30.9 start nose spray... Reactive a irway disease 2708180948 06 J45.909 s/p Covid, but appt with pulm... Screening mammography 24 295595 Z12.31 pending... ordered by OB Screening for malignant neoplasm of colon 854179126 Z12.11 ordered by OB... [id number] Liban Sheets MD [place] [address] 06/11/2023 15:17:10 06/12/2023 09:57:30 Diabetes mellitus 87984858 E11.9 seeing specialist ... Morbid obesity 025817214 E66.01 bmi=40.9 Allergic rhinitis 027397 04 J30.9 start nose spray... Essential hypertension 69160564 I10 meds and follow up.. add nitrate... check out-pt and follow up.... Reactive a irway disease 3075329219 06 J45.909 s/p Covid, but appt with pulm... Screening mammography 24 573745 Z12.31 pending... ordered by OB Screening for malignant neoplasm of colon 418284807 Z12.11 ordered by OB... Kidney disease 74302369 N08 refer to specialist .. Hyperkalemia 97904554 E8 7.5 wasnt taking potassium, so she is headed to urgent care for knee injury... she will report potassium issues while there as she hasnt taken lasix yet [id number] Liban Sheets MD [address] [address] 08/12/2023 15:01:08 08/13/2023 12:55:04 Morbid obesity 173227335 E66.01 bmi=40.9 Diabetes mellitus 814616 09 E11.9 seeing specialist ... Allergic rhinitis 900400 04 J30.9 start nose spray... Essential hypertension 06944699 I10 meds and follow up.. add nitrate... check out-pt and follow up.... Reactive a irway disease 9253475784 06 J45.909 s/p Covid, feel better, so missed pulm appt... Screening mammography 24 455989 Z12.31 pending... ordered by OB Screening for malignant neoplasm of colon 139913924 Z12.11 ordered by OB... Kidney disease 95013548 N08 refer to specialist .. Hyperkalemia 40393688 E8 7.5 wasnt taking potassium, so she is headed to urgent care for knee injury... she will report potassium issues while there as she hasnt taken lasix yet... [id number] Liban Sheets MD [address] [address] 09/10/2023 16:25:39 09/11/2023 08:10:58 Diabetes mellitus 03208372 E11.9 seeing specialist ... Morbid obesity 729162541 E66.01 bmi=39.3 Allergic rhinitis 541440 04 J30.9 start nose spray... Essential hypertension 21476055 I10 meds and follow up.. Imdur ER 60 mg daily... check out-pt and follow up... already taking losartan/H CTZ 100/25.... Reactive a irway disease 6805452906 06 J45.909 s/p Covid, feel better, so missed pulm appt... still has exercise induced wheezing, so use before exercise.. . Screening mammography 24 673769 Z12.31 pending... ordered by OB Screening for malignant neoplasm of colon 640946749 Z12.11 ordered by OB... Kidney disease 51599116 N08 refer to specialist .. Hyperkalemia 01856537 E8 7.5 wasnt taking potassium, so she is headed to urgent care for knee injury... she will report potassium issues while there as she hasnt taken lasix yet... [id number] RASHEEDA BLUE NP [facility] [address] [place] [address] 10/18/2023 13:16:09 10/19/2023 12:46:07 Morbid obesity 144870562 E66.01 Chest pain 82013624 R07. 9 Cough 07655493 R05.9 Hypertensive disorder 38 707915 I10 pt given clonidine po with no improvemen t in bp afterwards [id number] Leoncio Hernandez MD [facility] ([facility]) [address] [place] [address] 01/19/2024 14:22:53 01/20/2024 20:02:09 Abnormal renal function 48414425 R94.4 Likely to be CKD stage 3 CKD, rule out other causes. Likely not to be in need of a renal bisopy Hypertensive disorder 38 190145 I10 BP to < 130/80 Retinopath y due to diabetes mellitus 8089146 E11.319 Keep HgA1c < 7. Is on ARB< SGLT2 inhibitor, consider Kerendia in the future [id number] Liban Sheets MD [address] [address] 02/09/2024 16:18:23 02/10/2024 11:32:44 Morbid obesity 660087181 E66.01 bmi=39.3 Diabetes mellitus 415652 09 E11.9 seeing specialist ... Essential hypertension 69815647 I10 meds and follow up..restar t Imdur ER 60 mg daily... check out-pt and follow up... already taking losartan/H CTZ 100/25.... Hyperlipidemia 29187416 E78.5 Pain of le ft hip joint 4662500064 20321 M25.552 Pain of le ft knee joint 5540240555 10715 M25.562 Sprain of left ankle 759 9754188 1505831 S93.402A Vitamin D deficiency 347 05768 E55.9 [id number] Liban Sheets MD [address] [address] 05/09/2024 12:26:18 05/10/2024 10:29:19 Morbid obesity 487922611 E66.01 bmi=40.2 Diabetes mellitus 182312 09 E11.9 seeing specialist ... metformin/ Triseba/No volog per endo.. Essential hypertension 74186146 I10 meds and follow up.... check out-pt and follow up... already taking losartan/H CTZ 100/25... add hydralazin e... Osteoarthritis 687125750 M19.90 right knee pain stable... Anemia 917347660 D64.9 vitamin and follow up... restart iron... Vitamin D deficiency 347 65910 E55.9 restart.. [id number] Leoncio Hernandez MD [facility] ([address] [address] 08/23/2024 14:31:20 08/26/2024 13:31:31 Abnormal renal function 63859191 R94.4 Likely to be CKD stage 3 CKD, rule out other causes. Likely not to be in need of a renal biospy. LAbs not done, reorer Retinopath y due to diabetes mellitus 8323825 E11.319 Keep HgA1c < 7. Is on ARB< SGLT2 inhibitor Hypertensive disorder 38 976612 I10 BP to < 130/80, add carvedilol , stopped amlodipine , [facility] pharmacy notifeid vis new escript. [id number] Liban Sheets MD [address] [address] 09/06/2024 16:16:37 09/07/2024 09:02:39 Adult health examination 874538785 Z00.00 Health Risk Assessment collected and reviewed Diabetes mellitus 001007 09 E11.9 seeing specialist ... metformin/ Triseba/No volog per endo.. Morbid obesity 929976398 E66.01 bmi=40 Essential hypertension 15098270 I10 meds and follow up.... check out-pt and follow up... already taking losartan/H CTZ 100/25... Anemia 946793229 D64.9 vitamin and follow up... restart iron... Screening for malignant neoplasm of colon 510379056 Z12.11 ordered by OB... [id number] Liban Sheets MD [address] [address] 12/07/2024 15:33:46 12/09/2024 12:36:51 Obese class III 350391305 E66.813 bmi=40 Diabetes mellitus 702879 09 E11.9 seeing specialist ... metformin/ Triseba/No volog per endo.. Exacerbati on of moderate persistent asthma 968684486 J45.41 Health Concerns Section Related Observation LastModified by Organization Detai ls LastModified Time None Recorded Concern Status LastModified by Organization Details LastModified Time None Recorded Advance Directives Directive None Recorded Payers Insurance Date Sequence Insurance Name Policy Number Policy Camp Covered Member ID Camp Member ID Guarantor Name 03/12/2023 2 [employer] Loraine Bishop [id number] Loraine Bishop 03/12/2023 1 [employer] - DOS PRIOR TO 20 - [facility] BENEFITS PLAN Loraine Bishop [id number] Loraine Bishop 03/12/2023 1 [employer] - [employer]ICARE Loraine Bishop [id number] Loraine Bishop 03/12/2023 1 [employer] - ALLIED BENEFITS - OPEN ACCESS [id number] Loraine Bishop [id number] Loraine Bishop 12/07/2018 SLIDING FEE SCHEDULE - DISCOUNT Loraine Bishop 12/08/2018 2 *SELF PAY* De reid Bishop 10/01/2016 2 *SELF PAY* De reid Bishop 03/12/2023 1 [facility] (O) [id number] Loraine Bishop [id number] Loraine Bishop 10/01/2016 2 *SELF PAY* Ellis 03/12/2023 1 [employer] (POS) [id number] Loraine Bishop [id number] Loraine Bishop 12/07/2024 1 [employer] Loraine Bishop [id number] Loraine Bishop Notes Date Note Type Note Provider Name and Address Organization Details Recorded Time 02/09/2024 text/html no fevers/chills/SOB ... no S/H ideations.. left knee/low back pain/hip pain/ankle pain x 2 months.... no injury, but walked a lot on vacation at that time... flew to [place]... swelling goes down at night... no CP/SOB/GI... did not take isosorbide... Liban Sheets MD Attn: [employer],[address] [place], [address], [facility] 02/09/2024 17:01:34 05/09/2024 text/html saw opth... no visual changes... has U/S of kidneys scheduled per renal... no smoking/drinking. .. Imdur caused [place]... was prescribed in , but didnt take until last week... left knee pain at times... Liban Sheets MD Attn: [employer],[address] [place], [address], [facility] 05/09/2024 13:25:21 08/23/2024 text/html 68 yo female wit h h/o hypertension, diabetes, creatinine 1.61 mg/dL in Jun 2023. Hgb 9.3 g/dL..UA protein 100 mg/dl in 2018.Mother was on dialysis, underlying DM/HTN as the cause.Sees Dr Kortney jones PCP.Is on losartan.Diabetes mellitus type 2 since 1990H/o retinopathy, is being monitored.Hyperte nsive for the last 10 years.Noted creatinine elevation recently only.No urinary complaints, empties bladder. Daytime urination x 3, nocturia x 3.No frequent UTI, no hematuria, no renal stones, renal infections.Occasi onally sees foam in the urine, especially at night.No h/o RIO, cirrhosis of the liver, no hepatitis, liver disease..No CHF, MT, CVA.No NSAID use, other than ASA a dayNo labs doneUS renal smalll kidneys but normal looking Lenocio Hernandez MD Attn: [employer]ing,[address] [place], [address], [facility] 08/23/2024 15:05:52 09/06/2024 text/html saw renal MD and had carvedilol added for BP.... no S/H ideations... no smoking/drinking. .. Liban Sheets MD Attn: [employer],[address] [place], [address], [facility] 09/06/2024 17:24:26 12/07/2024 text/html has had wheezing x 3 months... worsened from August to September... was seen in urgent care at the end of August.. no fevers/chills, but has cough/wheezing... Liban Sheets MD Attn: Accounting,[address] [place], [address], [facility] 12/07/2024 17:15:30 OBGyn Episode No OBEpisode recorded.
--- OUTSIDE RECORDS SUMMARY | 2024-12-15 10:51 | XMS_ITS | Clinical Summary ---
[facility] Address [address] [place] [address] Care Team Providers Care Business Objects Consultant Name Role Phone Liban Sheets MD Primary Care Provider [phone] Allergies Active Allergy Reactions Criticality Noted Date Comments Nebivolol Swelling Medium 03/14/2020 Medications metFORMIN (GLUCOPHAGE) 1,000 mg tablet Take 1,500 mg by mouth daily with breakfast Active insulin aspart U-100 (NovoLOG) 100 unit/mL (3 mL) insulin pen Inject under the skin Sliding scale Active insulin degludec (Tresiba FlexTouch U-100) 100 unit/mL (3 mL) insulin pen Inject 18 Units under the skin daily Active aspirin 81 mg enteric coated tablet Take 81 mg by mouth daily Active carvediloL (COREG) 25 mg tablet Take 1 tablet (25 mg total) by mouth 2 (two) times a day with meals 60 tablet 5 1 Active losartan-hydroc hlorothiazide (HYZAAR) 100-25 mg per tablet Take 1 tablet by mouth daily Active cloNIDine (CATAPRES) 0.1 mg tablet Take 1 tablet (0.1 mg total) by mouth 3 (three) times a day 90 tablet 4 1 Active Active Problems Problem Noted Date Diagnosed Date Dyspnea on exertion 04/09/2021 Dyslipidemia 04/09/2021 Screening, lipid 04/09/2021 Hyperkalemia 02/28/2020 Edema 10/03/2019 Diastolic dysfunction 10/03/2019 Class 2 obesity due to exces s calories with body mass index (BMI) of 38.0 to 38.9 in adult 10/03/2019 Essential hypertension 12/15/2016 Diabetes mellitus 12/15/2016 Non-toxic multinodular goiter 12/15/2016 Type 2 diabetes mellitus with hyperglycemia 11/27 Type 2 diabetes mellitus 12/15/2016 Surgical History Surgery Date Site/Laterality Comments HYSTERECTOMY Hysterectomy - (Added by TW Conv) Medical History Medical History Date Comments Asymptomatic postmenopausal status Menopause Has Occurred - (Added by TW Conv) Diabetes mellitus (HCC) Hypertension Shortness of breath Asthma Family History Medical History Relation Name Comments Diabetes type II Brother Type 2 Diab etes Mellitus - (Added by TW Conv) Diabetes type II Mother Type 2 Diab etes Mellitus - (Added by TW Conv) Hypertension Mother Hypertension - (Added by Conv) Kidney failure Mother Thyroid disease Mother Thyroid Diso rder - (Added by Conv) Relation Name Status Comments Brother Mother Alive Social History Tobacco Use Types Packs/Day Years Used Date Smoking Tobacco: Never Smokeless Tobacco: Never Alcohol Use Standard Drinks/Week Comments Not Currently 0 (1 standard drink = 0.6 oz pur e alcohol) AUDIT-C Answer Date Recorded Q1: How often do you have a drink containing alc ohol? 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 Gender Identity Not on file Sexual Orientation Not on file Obstetrics History Last Filed Vital Signs Vital Sign Reading Time Taken Comments Blood Pressure 148/98 04/09/2021 4:26 PM CDT Pulse 77 04/09/2021 4:26 PM CDT Temperature 36.2 C (97.1 F) 10/11/2020 2:28 PM CDT Respiratory Rate - - Oxygen Saturation 99% 04/09/2021 4:26 PM CDT Inhaled Oxygen Concentration - - Weight 117.5 kg (259 lb) 04/09/2021 4:26 PM CDT Height 172.7 cm (5' 8) 04/09/2021 4:26 PM CDT Body Mass Index 39.38 04/09/2021 4:26 PM CDT Plan of Treatment Not on file Insurance Care Teams Business Objects Consultant Relationship Specialty Start Date End Date Liban Sheets MD [address] [place] [id number] PCP - General 12/15/16
--- OUTSIDE RECORDS SUMMARY | 2024-12-15 10:52 | XMS_ITS | Referral Summary ---
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
== END 2024-12-15 10:07 | disposition home or self-care (01) ==
LOC: ANHIMG 10:08
PROVIDERS: PCP Family Medicine; Visit Provider Obstetrics & Gynecology
DX: Z12.31 Encounter for screening mammogram for malignant neoplasm of breast (principal)
CPT/HCPCS: 77063; 77067